=== PATIENT | female | born 1995 | race Two or more races ===

== ENCOUNTER 2017-11-06 17:36 | Emergency (ER) | payer OTHER ==
[~2017-11-06] VITALS: Ht 167.6 cm; Wt 54.4 kg
[2017-11-06] MEDS ORDERED: TRAMADOL HCL7.5 GM (18:02)
== END 2017-11-06 19:16 | disposition home or self-care (01) ==
LOC: ER 17:36
DX: K08.89 Other specified disorders of teeth and supporting structures (principal)

== ENCOUNTER 2019-06-24 20:40 | Emergency (ER) | payer OTHER ==
[~2019-06-24] VITALS: Ht 167.6 cm; Wt 56.7 kg
[~2019-06-24 20:40] MED LIST: TRAMADOL HCL7.5 GM
== END 2019-06-24 21:44 | disposition home or self-care (01) ==
LOC: ER 20:40
DX: J03.90 Acute tonsillitis, unspecified (principal)